=== PATIENT | male | born 1985 | race African-American/Black ===

== ENCOUNTER 2018-08-05 15:22 | Inpatient (IN) | payer OTHER ==
[~2018-08-05] VITALS: Ht 175.3 cm; Wt 81.6 kg
--- NOTE | ~2018-08-05 | EEG ---
[facility] [place] [address] ELECTROENCEPHALOGRAM Name: SRAVANTHI HONG Room #: 461-P ADM IN M.R.#: [id number] Admission: 08/05/18 Attend Phys: Raj Voss MD Discharge: Date of : 83 Report #: [id number] THIS REPORT FOR: //name// CC: JUANITO physician/PCP Raj CARMONA PCP DATE OF SERVICE: 08/06/2018 This patient is being evaluated for seizure disorder. EEG was done by placing the electrodes by standard 10-20 system of electrode placement. Both referential and sequential montages were used for recording. Background activity in this patient's EEG is about 9-10 Hz and 30 microvolt. The patient is sedated. Throughout the record, no active epileptiform activity was noticed. Photic stimulation was unremarkable. IMPRESSION: This patient's electroencephalogram is intermixed with some theta range slowing, which may be because of sedation, although it is a nonspecific finding. It does not show any active epileptiform activity. By: [id number] Ez Murray MD /nt
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
[~2018-08-05 15:22] MED LIST: NOHOMEMEDICATIONS; NORCO 5-325 TA1 EACH PO; PHENERGAN 25 MG25 M1 PO
[2018-08-05 15:25] VITALS: BP 132/69
[2018-08-05 15:59] LABS: ABSOLUTE NEUTROPHILS 2.2 thou/uL (1.4-8.2); BASOPHILS 1.6 % (0.0-2.0); EOSINOPHILS 4.2 % (0.0-3.0); HEMOGLOBIN 14.9 gm/dL (14.0-18.0); MCH 29.1 pg (26.0-34.0); MCHC 34.7 g/dL (28.0-37.0); MCV 83.7 fL (80.0-100.0); MONOCYTES 6.2 % (1.0-8.0); PLATELET COUNT 227 thou/uL (150-400); RBC 5.14 mil/uL (4.50-6.00); RDW 14.1 % (10.5-14.5); WBC 3.9 thou/uL (4.0-11.0)
[2018-08-05 16:04] LABS: AMP/METHAMP POSITIVE (Negative); BARBITURATES Negative (Negative); BENZODIAZEPINES POSITIVE (Negative); COCAINE Negative (Negative); METHADONE Negative (Negative); OPIATES Negative (Negative); PCP Negative (Negative)
[2018-08-05 16:09] LABS: CREATININE 1.1 mg/dL (0.7-1.3); POTASSIUM 3.6 mmol/L (3.5-5.1)
[2018-08-05 16:24] LABS: ALBUMIN 3.8 g/dL (3.4-5.0); MAGNESIUM 1.8 mg/dL (1.8-2.4); TOTAL BILIRUBIN 0.3 mg/dL (<0.1-1.0); TOTAL PROTEIN 7.7 g/dL (6.4-8.2)
[2018-08-05 16:50] LABS: BE(vivo) 0.2 mmol/L (-2 to +3); HCO3 26.1 mmol/L (22.0-26.0); PCO2 46.8 mmHg (35.0-45.0); PO2 77.2 mmHg (80.0-100.0); pH 7.364 (7.360-7.450); sO2 94.9 % (92.0-98.0)
[2018-08-05 19:02] VITALS: BP 124/76; BP 127/80
[2018-08-05 21:07] VITALS: BP 113/91
[2018-08-05 21:55] VITALS: BP 141/86
--- NOTE | 2018-08-06 03:38 | NUR ---
PT ARRIVED AT 1999 PT DROWSY AND SEDATED PT GIVEN ATIVAN ONCE HE WAS VERY AGITATED DURING THE MIDDLE OF THE NIGHT PT WAS NOT ABLE TO PROVIDE ANY INFO FOR HEALTH HX PTS BELONGINGS STORED IN MED ROOM AND BELONGINGS SEARCHED BY SECURITY DUE TO PTS HX OF IV DRUG USE. PT ASLEEP MOST OF THE NIGHT.
[2018-08-06 04:08] LABS: GLYCOHEMOGLOBIN (HGB A1C) 5.2 % (4.8-5.6)
[2018-08-06 05:35] LABS: MCH 28.7 pg (26.0-34.0)
[2018-08-06 05:37] LABS: HEMATOCRIT 43.7 % (42.0-52.0); HEMOGLOBIN 14.9 gm/dL (14.0-18.0); MCHC 34.1 g/dL (28.0-37.0); MCV 84.3 fL (80.0-100.0); RBC 5.19 mil/uL (4.50-6.00); WBC 6.8 thou/uL (4.0-11.0)
[2018-08-06 05:57] LABS: CALCIUM 8.9 mg/dL (8.5-10.1); MAGNESIUM 1.9 mg/dL (1.8-2.4); POTASSIUM 4.3 mmol/L (3.5-5.1)
[2018-08-06 08:00] VITALS: BP 131/85
--- NOTE | 2018-08-06 11:45 | NUR ---
Notified to see pt for low nathalia score risk. Admitted with seizures, and signficant hx polysubstance abuse. Currently sedated, no wt hx available and has not been alert to eat meals yet. Also noted ankle wound-wound care pending evaluation. Will follow up again on 08/08 to complete nutrition assessment. Noted heart healthy diet order, pt also with hx diabetes so will add carb controlled.
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
--- NOTE | 2018-08-06 15:30 | NUR ---
WOUND CONSULT: PT. WAS SEEN TODAY BY DR. SPANGLER AND MYSELF. PT. HAS A LARGE ULCERATION TO HIS LEFT MEDIAL ANKLE. IT LOOKS CHRONIC IN NATURE. WHEN ASKED ABOUT WHAT STARTED THE ULCERATION PT. ADMITS TO INJECTING IN THE ANKLE. RECOMMENDATIONS: PURACOL AG TO WOUND BED, COVER WITH BOARDER FOAM, COMPLETE CARES DAILY AND PRN. PT. AND STAFF NURSE WERE INSTRUCTED ON PLAN OF CARE.
[2018-08-06 15:55] VITALS: BP 126/61
--- NOTE | 2018-08-06 18:12 | NUR ---
TOWARDS POC PT A/O X3. VSS, AFEBRILE. PT AGITATED WHEN AWAKE. PRN ATIVAN GIVEN. PT HAD MRI OF FOOT. RESULTS ARE IN. CESAR OF LLE IS NEGATIVE FOR DVT. AT BEDSIDE. PT SEEMS NOT WITHDRAWING WITH ALCOHOL BUT WITH PROBIHITED DRUGS. FALL BUNDLE IN PLACE. WILL CONTINUE TO MONITOR.
[2018-08-06 20:55] VITALS: BP 148/77
--- NOTE | 2018-08-07 04:36 | NUR ---
Assumed care at 1845. Pt resting in bed with girlfriend at bedside. Has been sleeping for the most part of the day. Only wakes up to eat. He wakes up agitated scoring between 9-11 on CIWA. Took pictures of wound on left inner ankle and changed the dressing. Pt has had any episode of visual or audio hallucinations. No identified needs at the moment. Will continue to monitor.
[2018-08-07 06:03] LABS: HEMATOCRIT 45.4 % (42.0-52.0); HEMOGLOBIN 15.2 gm/dL (14.0-18.0); MCH 28.3 pg (26.0-34.0); MCHC 33.5 g/dL (28.0-37.0); MCV 84.3 fL (80.0-100.0); RBC 5.39 mil/uL (4.50-6.00); RDW 13.7 % (10.5-14.5); WBC 4.3 thou/uL (4.0-11.0)
[2018-08-07 06:09] LABS: CALCIUM 9.3 mg/dL (8.5-10.1); CREATININE 1.2 mg/dL (0.7-1.3); MAGNESIUM 1.9 mg/dL (1.8-2.4); PHOSPHORUS 3.6 mg/dL (2.5-4.9); POTASSIUM 4.2 mmol/L (3.5-5.1)
[2018-08-07 11:34] VITALS: BP 140/86
--- NOTE | 2018-08-07 12:49 | NUR ---
Assumed pt care at 0700. pt was sleeping at this time. have been unable to arose pt enough to hold a conversation. he will wake up to calling his name and follow basic commands but unable to stay awake. open wound on left inner ankle. pts friends showed up to pick him up. the pt stated he wished to be d/c ama. called security and hospitalist to inform them on the situation. was told to let him leave. gave him 3 bags of belongings and he left.
--- NOTE | 2018-08-07 15:57 | NUR ---
PT DISCHARGED AMA EARLIER THIS AFTERNOON. NO RESURCES OR REFERRALS WERE MADE ON HIS BEHALF.
[2018-08-07 17:07] LABS: HIV ANTIBODY Non Reactive (Non Reactive)
[2018-08-07 22:07] LABS: HEP B SURFACE Ab(ANTI-HBS Non Reactive (()); HEPATITIS B SURFACE AG Negative (Negative); HEPATITIS C VIRUS AB 0.6 (0.0-0.9)
== END 2018-08-07 13:15 | disposition left against medical advice (07) | DRG 101 ==
LOC: ER 15:22 → EROBS 17:12 → 4W 17:12
PROVIDERS: Emergency Medicine; Specialist; ADMIT Internal Medicine
DX: G40.901 Epilepsy, unspecified, not intractable, with status epilepticus (principal); L97.329 Non-pressure chronic ulcer of left ankle with unspecified severity; I10 Essential (primary) hypertension; J45.909 Unspecified asthma, uncomplicated; F19.10 Other psychoactive substance abuse, uncomplicated; E11.621 Type 2 diabetes mellitus with foot ulcer; Z53.21 Procedure and treatment not carried out due to patient leaving prior to being seen by health care provider; Z79.899 Other long term (current) drug therapy; Z22.322 Carrier or suspected carrier of Methicillin resistant Staphylococcus aureus
CPT/HCPCS: 10045

== ENCOUNTER 2018-10-10 19:08 | Emergency (ER) | payer OTHER ==
[~2018-10-10] VITALS: Ht 172.7 cm; Wt 90.7 kg
[2018-10-10 19:29] LABS: URINE BILIRUBIN NEGATIVE (Negative); URINE BLOOD NEGATIVE (Negative); URINE CLARITY CLEAR; URINE COLOR YELLOW; URINE GLUCOSE-RANDOM* NEGATIVE (Negative); URINE KETONES NEGATIVE (Negative); URINE LEUKOCYTES-REFLEX NEGATIVE (Negative); URINE NITRITE-REFLEX NEGATIVE (Negative); URINE PROTEIN (DIPSTICK) 1+ (Negative); URINE SPECIFIC GRAVITY 1.025 (1.005-1.035)
[2018-10-10 19:35] LABS: BACTERIA-REFLEX 1-9 Few /HPF (None Seen); CASTS None Seen /LPF (None Seen); CRYSTALS None Seen /LPF (None Seen); SQUAMOUS None Seen /LPF (0-3); URINE RBC None Seen /HPF (0-2); URINE WBC-REFLEX 0-5 Rare /HPF (0-5)
[2018-10-10 19:38] LABS: AMP/METHAMP POSITIVE (Negative); BARBITURATES Negative (Negative); BENZODIAZEPINES Negative (Negative); COCAINE Negative (Negative); METHADONE Negative (Negative); OPIATES Negative (Negative); PCP Negative (Negative)
[2018-10-10 22:37] LABS: CALCIUM 9.8 mg/dL (8.5-10.1); CREATININE 1.1 mg/dL (0.7-1.3); POTASSIUM 3.6 mmol/L (3.5-5.1)
[2018-10-10 22:40] VITALS: BP 154/85
[2018-10-10 22:50] LABS: ALBUMIN 3.6 g/dL (3.4-5.0); TOTAL BILIRUBIN 0.4 mg/dL (<0.1-1.0); TOTAL PROTEIN 7.6 g/dL (6.4-8.2)
== END 2018-10-10 22:32 | disposition left against medical advice (07) ==
LOC: ER 19:08
PROVIDERS: Emergency Medicine
DX: L03.116 Cellulitis of left lower limb (principal); I10 Essential (primary) hypertension; J45.909 Unspecified asthma, uncomplicated; F17.210 Nicotine dependence, cigarettes, uncomplicated